=== PATIENT | female | born 1935 | race Caucasian/White ===

== ENCOUNTER 2021-02-22 08:05 | Emergency (ER) | payer MEDICARE, OTHER | END 2021-02-22 10:00 | disposition home or self-care (01) | LOC: FER 08:05 | DX: S92.354A Nondisplaced fracture of fifth metatarsal bone, right foot, initial encounter for closed fracture (principal); S93.491A Sprain of other ligament of right ankle, initial encounter; Z88.1 Allergy status to other antibiotic agents; X50.1XXA Overexertion from prolonged static or awkward postures, initial encounter | CPT/HCPCS: 73610; 73630 ==

== ENCOUNTER 2021-08-04 18:11 | Emergency (ER) | payer MEDICARE, OTHER ==
[2021-08-04 22:38] LABS: BASOPHIL 0.8 % (0-2); EOSINOPHIL 4.9 % (0-7); HCT 42.1 % (37.0-47.0); HGB 13.3 g/dl (12.5-16.0); LYMPHOCYTE 34.3 % (15-48); MCH 28.9 pg (25.0-31.0); MCHC 31.6 g/dL (32.0-36.0); MCV 91.3 fL (78.0-100.0); MONOCYTE 8.3 % (0-12); MPV 9.3 fL (6.0-9.5); NEUTROPHIL 51.4 % (41-80); NRBC 0; PLT 332 K/uL (150-400); RBC 4.61 M/uL (4.20-5.40); RDW 13.6 % (11.5-14.0); WBC 7.8 K/uL (4.0-10.5)
[2021-08-04 22:56] LABS: ALBUMIN 3.5 g/dL (3.4-5.0); BILIRUBIN - TOTAL 0.3 mg/dL (0.2-1.0); BUN/CREAT RATIO (CALC) 22.7 RATIO; CREATININE 0.66 mg/dL (0.51-0.95); GLOBULIN (CALCULATION) 4.2 g/dL; MAGNESIUM 2.1 mg/dL (1.8-2.4); POTASSIUM 3.7 mmol/L (3.5-5.1); TOTAL PROTEIN 7.7 g/dL (6.4-8.2)
[2021-08-04 23:30] LABS: BILIRUBIN NEGATIVE (NEGATIVE); BLOOD TRACE-INTACT Ery/uL (NEGATIVE); CLARITY CLEAR (CLEAR); COLOR YELLOW (YELLOW); GLUCOSE (U) NORMAL (NORMAL); LEUKOCYTES 1+ Leu/uL (NEGATIVE); NITRITE NEGATIVE (NEGATIVE); PROTEIN NEGATIVE (NEGATIVE); UROBILINOGEN 0.2 mg/dL (0.2-1.0)
[2021-08-04 23:37] LABS: BACTERIA TRACE; STARCH GRANULES PRESENT
[2021-08-04] MEDS ORDERED: AZITHROMYCIN250 MG PO (23:50)
[2021-08-04] MEDS ORDERED: MEDROL 4MG DOSEP4 MG PO (23:50)
[2021-08-05] MEDS ORDERED: NORVASC5 MG PO (00:14)
== END 2021-08-05 00:33 | disposition home or self-care (01) ==
LOC: FER 18:11
PROVIDERS: Internal Medicine
DX: B34.9 Viral infection, unspecified (principal); R53.81 Other malaise; Z88.1 Allergy status to other antibiotic agents
CPT/HCPCS: 36415; 71045; 80053; 81001; 83690; 83735; 84484; 85025; 93005; J1100